=== PATIENT | female | born 1975 | race Two or more races ===

== ENCOUNTER → 2024-07-22 | Outpatient (CLI) | payer MEDICAID, SELFPAY ==
--- NOTE | 2024-07-22 13:30 | ECHO_ITS ---
Transthoracic Echo Report Ht (in): 63 Wt (lb): 210 Exam Location: Echo Lab Status: Preadmit Financial Reporting Specialist: TU Schumacher^^^^ Indications: Procedure Performed: BP: / HR: Technical Quality: Fair MEASUREMENTS (Male / Female) Normal Values 2D ECHO LV Diastolic Diameter PLAX 5.3 cm 4.2 - 5.9 / 3.9 - 5.3 cm LV Systolic Diameter PLAX 3.3 cm IVS Diastolic Thickness 0.6 cm 0.6 - 1.0 / 0.6 - 0.9 cm LVPW Diastolic Thickness 0.7 cm 0.6 - 1.0 / 0.6 - 0.9 cm LV Relative Wall Thickness 0.2 LVOT Diameter 1.7 cm Aortic Root Diameter 2.9 cm LA Systolic Diameter LX 4.0 cm 3.0 - 4.0 / 2.7 - 3.8 cm LA Volume Index 36.4 cm?/m? 16 - 28 cm?/m? Ascending Aorta Diameter 3.0 cm DOPPLER AV Peak Velocity 133.0 cm/s AV Peak Gradient 7.1 mmHg AV Mean Gradient 4.0 mmHg AV Velocity Time Integral 34.3 cm LVOT Peak Velocity 119.0 cm/s LVOT Peak Gradient 5.7 mmHg LVOT Velocity Time Integral 28.3 cm AV Area Cont Eq vti 1.9 cm? AV Area Cont Eq pk 2.0 cm? MV Area PHT 2.6 cm? MR Peak Velocity 264.0 cm/s MR Peak Gradient 27.9 mmHg Mitral E Point Velocity 77.7 cm/s Mitral A Point Velocity 64.2 cm/s Mitral E to A Ratio 1.2 LV E' Lateral Velocity 13.3 cm/s Mitral E to LV E' Lateral Ratio 5.8 LV E' Septal Velocity 9.4 cm/s Mitral E to LV E' Septal Ratio 8.2 TR Peak Velocity 280.3 cm/s TR Peak Gradient 31.4 mmHg PV Peak Velocity 97.6 cm/s PV Peak Gradient 3.8 mmHg RVOT Peak Velocity 54.7 cm/s FINDINGS Left Ventricle Normal left ventricular size, wall thickness, systolic function with no obvious regional wall motion abnormalities. There is grade I diastolic dysfunction of the left ventricle (impaired relaxation pattern). The left ventricular ejection fraction is normal, estimated at 60-65%. Right Ventricle The right ventricle is normal in size and systolic function. The estimated right ventricular systolic pressure, 36 mmHg. Left Atrium The left atrial cavity size is mildly increased. Right Atrium The right atrium is normal by two-dimensional imaging, color flow and Doppler imaging with no structural abnormalities, no thrombus formation present. Atrial Septum The interatrial septum appears normal with no evidence of a shunt. Aorta The aorta is normal by two-dimensional, color flow and Doppler interrogation. Mitral Valve Mild mitral annular calcification. Mild mitral regurgitation. Aortic Valve Aortic valve sclerosis. Tricuspid Valve There is mild tricuspid valve regurgitation. Pulmonic Valve Trivial pulmonic valve regurgitation. Vessels The pulmonary artery appears normal. The inferior vena cava pulmonary and hepatic veins appear normal. Pericardium The pericardium is normal by two-dimensional imaging. There is no significant pericardial effusion. CONCLUSIONS indication: chest pain Normal-sized cardiac chambers. Normal-sized left ventricle with excellent LV systolic function ejection fraction of 65%. Mild tricuspid and mitral regurgitation insignificant. No significant valvular heart disease. Delilah Schreiber (Electronically Signed) Final Date: 22 July 2024 16:07
== END | disposition home or self-care (01) ==
LOC: SDIM 13:08
DX: I08.1 Rheumatic disorders of both mitral and tricuspid valves (principal)
CPT/HCPCS: 93306